=== PATIENT | female | born 1945 | race African-American/Black ===

== ENCOUNTER 2020-06-04 08:55 | Outpatient (CLI) | payer OTHER, MEDICARE | END 2020-06-04 08:56 | disposition home or self-care (01) | LOC: CSHWCC 08:55 | PROVIDERS: ATTEND Nurse Practitioner Family | DX: T81.89XD Other complications of procedures, not elsewhere classified, subsequent encounter (principal); I87.2 Venous insufficiency (chronic) (peripheral); R60.0 Localized edema; M25.50 Pain in unspecified joint; G90.09 Other idiopathic peripheral autonomic neuropathy; I25.84 Coronary atherosclerosis due to calcified coronary lesion; E11.22 Type 2 diabetes mellitus with diabetic chronic kidney disease; N18.9 Chronic kidney disease, unspecified; I70.25 Atherosclerosis of native arteries of other extremities with ulceration; M20.5X9 Other deformities of toe(s) (acquired), unspecified foot | CPT/HCPCS: 11042; 29581 ==

== ENCOUNTER 2020-06-25 14:16 | Outpatient (CLI) | payer MEDICARE, OTHER | END 2020-06-25 14:17 | disposition home or self-care (01) | LOC: CSHWCC 14:16 | PROVIDERS: ATTEND Nurse Practitioner Family | DX: T81.89XD Other complications of procedures, not elsewhere classified, subsequent encounter (principal); I87.2 Venous insufficiency (chronic) (peripheral); E11.22 Type 2 diabetes mellitus with diabetic chronic kidney disease; N18.9 Chronic kidney disease, unspecified; G90.09 Other idiopathic peripheral autonomic neuropathy; I25.84 Coronary atherosclerosis due to calcified coronary lesion; E11.51 Type 2 diabetes mellitus with diabetic peripheral angiopathy without gangrene; R60.0 Localized edema; I70.25 Atherosclerosis of native arteries of other extremities with ulceration; M20.5X9 Other deformities of toe(s) (acquired), unspecified foot; M25.50 Pain in unspecified joint | CPT/HCPCS: 29581; 99213; G0463 ==

== ENCOUNTER 2020-07-22 11:15 | Outpatient (CLI) | payer MEDICARE, OTHER | END 2020-07-22 11:16 | disposition home or self-care (01) | LOC: CSHWCC 11:15 | PROVIDERS: ATTEND Nurse Practitioner Family | DX: T81.89XD Other complications of procedures, not elsewhere classified, subsequent encounter (principal); I87.2 Venous insufficiency (chronic) (peripheral); E11.22 Type 2 diabetes mellitus with diabetic chronic kidney disease; N18.9 Chronic kidney disease, unspecified; E11.51 Type 2 diabetes mellitus with diabetic peripheral angiopathy without gangrene; I70.25 Atherosclerosis of native arteries of other extremities with ulceration; G90.09 Other idiopathic peripheral autonomic neuropathy; I25.84 Coronary atherosclerosis due to calcified coronary lesion; R60.0 Localized edema; M20.5X9 Other deformities of toe(s) (acquired), unspecified foot; M25.50 Pain in unspecified joint | CPT/HCPCS: 99213; G0463 ==